=== PATIENT | female | born 1995 | race Two or more races ===

== ENCOUNTER 2021-01-19 13:11 | Emergency (ER) | payer OTHER ==
[~2021-01-19] VITALS: Ht 165.1 cm; Wt 56.2 kg
[2021-01-19] MEDS ORDERED: DIALYVITE 8000.8 M1 (13:35)
== END 2021-01-19 20:48 | disposition home or self-care (01) ==
LOC: ER 13:11
DX: O20.0 Threatened abortion (principal); Z3A.12 12 weeks gestation of pregnancy

== ENCOUNTER 2021-04-07 12:46 | Outpatient (CLI) | payer OTHER ==
[~2021-04-07 12:46] MED LIST: DIALYVITE 8000.8 M1
== END 2021-04-07 13:59 | disposition home or self-care (01) ==
LOC: PRENATAL 12:46
PROVIDERS: ATTEND Obstetrics & Gynecology Maternal & Fetal Medicine
DX: O35.0XX1 Maternal care for (suspected) central nervous system malformation in fetus, fetus 1 (principal); O35.3XX1 Maternal care for (suspected) damage to fetus from viral disease in mother, fetus 1; O98.512 Other viral diseases complicating pregnancy, second trimester; Z36.89 Encounter for other specified antenatal screening; Z3A.23 23 weeks gestation of pregnancy

== ENCOUNTER 2021-06-12 13:14 | Outpatient (CLI) | payer OTHER | END 2021-06-12 14:26 | disposition home or self-care (01) | LOC: PRENATAL 13:14 | PROVIDERS: ATTEND Obstetrics & Gynecology Maternal & Fetal Medicine | DX: O26.879 Cervical shortening, unspecified trimester (principal); O36.8199 Decreased fetal movements, unspecified trimester, other fetus; O35.0XX0 Maternal care for (suspected) central nervous system malformation in fetus, not applicable or unspecified; O26.849 Uterine size-date discrepancy, unspecified trimester; O36.5990 Maternal care for other known or suspected poor fetal growth, unspecified trimester, not applicable or unspecified ==